=== PATIENT | male | born 2000 | race Caucasian/White ===

== ENCOUNTER 2023-08-20 16:08 | Emergency (ER) | payer BC, SELFPAY ==
[2023-08-20 16:18] VITALS: BP 154/79; PULSE 90; RESP 16; TEMP 37.1; O2SAT 99
[2023-08-20 16:23] VITALS: BP 154/79; PULSE 90; RESP 16; TEMP 37.1; O2SAT 99
--- NOTE | 2023-08-20 16:34 | ED.GENADUL_ITS ---
HPI General Date/Time Provider Initiated Documentation: 08/20/23 16:26 . HPI Narrative: This 23-year-old male presents with report of sore throat for the past week. Mother diagnosed with strep approximately a week ago. Has had subjective fevers. And pain with swallowing. Denies globus sensation. Denies neck pain or headache. Denies any cough or runny nose. Related Data Home Medications Medication Instructions Recorded Confirmed Unknown [No Known Home Meds] 08/20/23 08/20/23 Allergies Allergy/AdvReac Type Severity Reaction Status Date / Time No Known Allergies Allergy Unverified 08/20/23 16:22 General Stated Complaint: Sorethroat [place]: 4 Course Vital Signs Vital signs: Vital Signs Temperature 37.1 C 08/20/23 16:18 Pulse 90 08/20/23 16:18 Respiratory Rate 16 08/20/23 16:18 Blood Pressure 154/79 H 08/20/23 16:18 Pulse Oximetry 99 08/20/23 16:18 Temperature 37.1 C 08/20/23 16:23 Pulse 90 08/20/23 16:23 Respiratory Rate 16 08/20/23 16:23 Blood Pressure 154/79 H 08/20/23 16:23 Blood Pressure Position Sitting 08/20/23 16:23 Pulse Oximetry 99 08/20/23 16:23 Oxygen Delivery Method Room Air 08/20/23 16:23 Oxygen Flow Rate 0 08/20/23 16:23 Medical Decision Making 23-year-old male presents with a report as sore throat for the past week Mother recently diagnosed with strep Patient states he was symptomatic prior to his mom Oropharynx patent, uvula midline, no exudates, mild erythema No trismus, no meningismus Negative strep test, culture pending, patient made aware Will hold on antibiotics at this time Discharged home in stable condition, blood pressure mildly elevated, encouraged to follow-up with primary care physician for recheck Return precautions reviewed and patient expressed understanding Quality:SDOH Health Related Social Needs: No Data to Display PFSH All Active Problems (Updated 08/20/23 @ 17:06 by CASSIE Horne) Pharyngitis (Acute) Social History Smoking/Tobacco Use Status: Former Tobacco Use Smoking risk assessment performed?: Yes Alcohol Intake: current Alcohol Intake frequency: a few times a week Alcohol type: hard liquor Drug use: Occasionally Substance use type: marijuana Housing: house Do you feel safe at home: Yes Do you feel safe in your relationship?: Yes PAWSS Have you Been Recently Intoxicated or Drunk Within the Last 30 days?: No Have you Ever Experienced Previous Episodes of Alcohol Withdrawal?: No Have you ever Experienced Withdrawal Seizures?: No Have you ever Experienced Delirium Tremens(DT)s?: No Have you ever undergone Alcohol Rehabilitation Treatment (i.e, inpt ot outpatient treatment programs)?: No Have you ever Experienced Blackouts?: No Have you ever Combined Alcohol with other Downers within the last 90 days?: No Result: 0 Discharge Plan Disposition Patient Disposition: Home Discharge Details Clinical Impression: Pharyngitis Primary Care Provider: Unknown,Unknown ED Provider: Maddi Gramajo Home Meds and New Rx's Prescriptions: No Action No Known Home Meds Discharge Instructions Instructions: Pharyngitis (ED) Additional Instructions: your strep test today was negative motrin and tylenol as needed for pain keep yourself hydrated recheck blood pressure by pcp return earlier with new worsening complaints including difficulty swallowing, persistent fever Discharge Data Discharge Date/Time-TO BE ENTERED AT DEPARTURE: 08/20/23 17:17
== END 2023-08-20 17:17 | disposition home or self-care (01) ==
PROVIDERS: Emergency Provider Physician Assistant
DX: J02.9 Acute pharyngitis, unspecified (principal); R13.10 Dysphagia, unspecified; Z87.891 Personal history of nicotine dependence
CPT/HCPCS: 87880; 99283; 87081